=== PATIENT | male | born 1960 | race Caucasian/White ===

== ENCOUNTER 2022-01-28 10:53 | Outpatient (RCR) | payer OTHER, SELFPAY ==
[2022-01-28 11:32] LABS: Hematocrit 27.9 % (40-54); Hemoglobin 8.9 g/dL (13.0-16.5); Mean Corp Hgb Conc 31.9 g/dL (32-36); Mean Corpuscular Hgb 31.2 pg (27.0-32.0); Mean Corpuscular Volume 97.9 fL (80-94); Mean Platelet Vol. 8.7 fl (6.2-12.0); POSITIVE COUNT YES; POSITIVE DIFFERENTIAL YES; POSITIVE MORPHOLOGY YES; Platelet Count 223 K/mm3 (150-450); Red Blood Count 2.85 M/mm3 (4.6-6.2)
[2022-01-28 11:48] LABS: AST(SGOT) 22 U/L (15-37); Alanine Aminotransfer ALT/SGPT 50 U/L (16-61); Albumin, Serum 3.1 g/dL (3.2-5.0); Alkaline Phosphatase 71 U/L (45-117); Anion Gap 5 (5-15); BUN 13 mg/dL (7-18); BUN/Creat Ratio 20.5 RATIO (10-20); Calcium,Total 9.2 mg/dL (8.5-10.1); Chloride 101 mmol/L (98-107); Creatinine, Serum 0.64 mg/dL (0.70-1.30); EST Glomerular Filtration Rate 136 mL/min (>60); Est Glom Filt Rate - Afr Amer 165 mL/min (>60); Globulin 3.2 g/dL (2.2-4.2); Glucose 100 mg/dL (74-106); Potassium 3.4 mmol/L (3.5-5.1); Protein, Total 6.3 g/dL (6.4-8.2); Sodium Level 137 mmol/L (136-145)
[2022-01-28 11:53] LABS: Differential Indicated MANUAL DIFF; White Blood Count 31.6 K/mm3 (4.4-11.0)
[2022-01-28 12:23] LABS: Lymphocyte 10 % (19-41); Neutrophil-Segmented 90 % (47-70); Total Cells Counted 100 (MANUAL DIFF)
[2022-01-28 12:24] LABS: Platelet Estimate ADEQUATE (ADEQ); Red Cell Morphology NORM C+C NORMAL (NORM C&C)
[2022-01-28 12:25] LABS: Absolute Neutrophil Count 28.4 X10^3/uL (2.0-7.7)
[2022-01-28 19:28] LABS: Xtra Tube EP Lab EXTRA TUBE
[2022-01-29 14:04] LABS: Pathologist Review Reviewed
== END 2022-01-31 23:59 ==
LOC: PAVLAB 10:53
PROVIDERS: Referring Provider Nurse Practitioner Adult Health; Visit Provider Nurse Practitioner Adult Health
DX: C83.30 Diffuse large B-cell lymphoma, unspecified site (principal)
CPT/HCPCS: 36415; 80053; 85025

== ENCOUNTER → 2022-02-06 | Outpatient (CLI) | payer OTHER, SELFPAY ==
--- NOTE | 2022-02-06 14:45 | PET_ITS ---
PROCEDURE: WHOLE BODY PET/CT SCAN, SKULL TO FEET REASON FOR EXAM: Non-Hodgkin''s lymphoma involving the stomach staging COMPARISON EXAMINATION: None. TECHNIQUE: Following the intravenous administration of 12.4 mCi of F-18 FDG, multiplanar imaging acquisitions of the head/neck, chest, abdomen/pelvis to the feet, obtained at 1 hour post radiopharmaceutical administration. Interpretation is with co-registeration of similar anatomic distribution of CT. Findings: Normal and physiologic distribution of radioisotope identified in the expected intensity of the hepatic and splenic parenchyma, urinary tract and gastrointestinal structures. There is gross anatomic distribution of the intracranial contents. INDEX LESION SIZE SUV INTERPRETATION: 1. None CT portion of the exam: The lungs are normal. There is no demonstrated pleural abnormality. Normal heart and pericardium. There are calcifications of the coronary arteries. Normal mediastinum. Normal hilar regions. Normal unenhanced pulmonary arteries. There is atherosclerotic calcification of the aortic arch with tortuosity and elongation of the aortic arch and descending thoracic aorta. Carotid atherosclerosis. There is decreased attenuation of the liver consistent with steatosis. Normal gallbladder and extrahepatic biliary system. Normal spleen. Normal pancreas. Normal bilateral adrenal glands. Normal right kidney. Normal left kidney. No gastric wall thickening/mass. Normal small intestine. There are multiple colonic diverticula consistent with diverticulosis. There is non-visualization of the appendix. There is diffuse atherosclerotic calcification of the abdominal aorta, without a demonstrated aneurysm. Normal inferior vena cava. Normal urinary bladder. Unremarkable osseous structures. PET/PET/CT Tumor WB Subs IMPRESSION: 1. NEGATIVE EXAMINATION. No scintigraphic evidence of viable neoplasm. 2. Chronic changes, as detailed above. Electronically Signed: Jerry Vidal MD ([place]) at 14:35 EDT ,
== END | disposition home or self-care (01) ==
DX: C85.99 Non-Hodgkin lymphoma, unspecified, extranodal and solid organ sites (principal)
CPT/HCPCS: 78816; A9552

== ENCOUNTER 2022-02-12 09:25 | Day surgery (SDC) | payer OTHER, SELFPAY ==
[2022-02-12] VITALS (7 sets, daily range): BP systolic 109–146; BP diastolic 76–83; PULSE 71–77; RESP 12–16; TEMP 36.3–36.4; O2SAT 93–99; BMI 31.6
[2022-02-12] MEDS: Lactated Ringers 1,000 ML 15 ML IV (10:30)
--- NOTE | 2022-02-12 10:47 | PCM.HP.BLA ---
History and Physical Date of Admission: 02/12/22 Intake Vital Signs ? 01/31/2213:38 Height 5 ft 11 in Weight: 237 lb 4 oz BMI 33.0 BP 146/81 H Blood Pressure Location Rt brachial Position Sitting Respiration 18 Pulse 92 Pulse Source Monitor Temp 98.7 F Temp Source Temporal Pulse Oximetry (%) 96 Oxygen Delivery Method room air Intake Visit Reasons:?Port placement consult Chief Complaint: Port Placement Consult Electrical Technician Required: No Accompanied by: Is patient in pain?: No Allergies venom-honey bee [bee venom (honey bee)] Allergy (Verified 01/31/22 13:40) Anaphylaxis Medications atorvastatin 10 mg tablet 10 mg PO DAILY 01/25/16 [History Confirmed 01/31/22] epinephrine 0.3 mg/0.3 mL injection, auto-injector 0.3 mg IM PRN PRN Anaphylaxis 01/25/16 [History Confirmed 01/31/22] filgrastim 480 mcg/0.8 mL injection syringe ([employer]) 480 mcg subcut DAILY 01/25/22 [History Confirmed 01/31/22] omeprazole 40 mg capsule,delayed release 40 mg PO BID 01/25/22 [History Confirmed 01/31/22] ondansetron 4 mg oral soluble film 4 mg PO Q8H 01/25/22 [History Confirmed 01/31/22] polyethylene glycol 3350 17 gram/dose oral powder 4 g PO DAILY 01/25/22 [History Confirmed 01/31/22] prochlorperazine maleate 10 mg tablet 10 mg PO BID PRN 01/25/22 [History Confirmed 01/31/22] sennosides 8.6 mg tablet (Natural Senna Laxative) 8.6 mg PO DAILY 01/25/22 [History Confirmed 01/31/22] valacyclovir 500 mg tablet 500 mg PO DAILY 01/25/22 [History Confirmed 01/31/22] multivitamin 1 tab PO DAILY 01/30/22 [History Confirmed 01/31/22] omega 9-jeh-zit-fish oil 60 mg-90 mg-500 mg capsule 1 cap PO DAILY 01/30/22 [History Confirmed 01/31/22] prednisone 10 mg tablet 100 mg PO DAILY 5 days #50 tabs 01/30/22 [Rx Confirmed 01/31/22] PFSH Medical History? Anemia DLBCL (diffuse large B cell lymphoma) Gastric ulcer Social History? household members:? spouse current occupational status:? employed current occupation:? [employer] Smoking Status:? Current every day smoker tobacco type: cigarettes Tobacco: How many years used:? 35 alcohol intake:? former details:? quit 23 years ago substance use type:? does not use HPI HPI HPI: HUMBERTO LAROSE, is a 61 M who presents to the office today for port placement.? The patient has lymphoma and requires port for treatment. ROS General General: No weight change, appetite, fatigue, colon cancer, breast cancer or weakness HEENT HEENT: No difficulty swallowing, eye injury, eye surgery, swollen glands or hoarseness Endo Endocrine: No thyroid disease, diabetes mellitus, thyroid cancer, Hair loss, heat intolerance or cold intolerance Skin Skin: No rash or changing moles Breast Breast: No left breast lump, right breast lump, nipple discharge, breast pain, abnormal mammogram, abnormal US or breast enlargement Musc Musculoskeletal: No back problems, arthritis, rheumatoid arthritis, gout or joint pain Cardio Cardiovascular: No murmur, pacemaker, heart disease, atrial fibrillation, high blood pressure, heart attack, heart stent, palpitations, shortness of breat with exertion or chest pain Psych Psychiatric: No depression, anxiety or hearing voices Resp Respiratory: No shortness of breath, No sleep apnea, No cough, No COPD, No asthma, No emphysema and No wheezing Gastro Gastrointestinal: No abdominal pain, No nausea or vomiting, No diarrhea, No constipation, No blood in stool, No acid reflux, No hemorrhoids, No ulcers, No gallbladder problem and No black,tarry stools Nagi Hematologic: No blood thinners, No blood disorders, No bleeding, No anemia and No blood clots Neuro Neurologic: No system reviewed and no additional complaints, except as documented, No as per HPI, No abnormal gait, No abnormal hearing, No abnormal movements, No abnormal speech, No behavioral changes, No burning sensations, No confusion, No convulsions, No disequilibrium, No dizziness, No localized weakness, No frequent falls, No headache(s), No lack of coordination, No loss of vision, No memory loss, No numbness, No other visual disturbances, No radicular pain, No restless legs, No sensory deficit, No syncope, No tingling, No tremor(s), No weakness and No other Exam Const General: cooperative Orientation: alert and oriented x3 HENAK Head: normal to inspection Neck Neck: normal visual inspection and full ROM Chest Chest palpation & inspection: normal inspection of the chest Resp Effort & Inspection: normal respiratory effort Auscultation: clear to auscultation bilaterally Cardio Rate: regular rate Rhythm: regular rhythm GI Inspection: non-distended Palpation: soft and nontender Skin General: no rashes or lesions noted Neuro General: patient alert and patient oriented x3 Extrem General: full ROM Psych Appearance: grossly normal Mental Status: mental status grossly normal Assessment and Plan Assessment and Plan (1) Encounter for adjustment and management of vascular access device: ?Status:?Acute ?Plan: The patient requires port for vascular access for treatment of lymphoma.? I discussed port placement with him in detail.? I discussed the risks including not limited to bleeding, infection, pneumothorax, line infection or DVT.? I also discussed the procedure in detail with the patient I will leave the port accessed as he is getting treatment 2 days later. Ja Ayon MD Pager: [facility] [address] [place] [address], [address] [place] [address] Office: I have re-examined the patient. There are no clinical changes since date of exam.
[2022-02-12] MEDS: Cefazolin 2 GM in 0.9% Normal Saline 100 ML IV (11:03)
[2022-02-12] MEDS: Bupivacaine 0.25% 30 ML Vial (11:26)
--- NOTE | 2022-02-12 11:54 | RAD_ITS ---
STUDY: X-RAY CHEST REASON FOR EXAM: Male, 61 years old. Line placement -- in pacu TECHNIQUE: Single AP portable view of the chest. COMPARISON: None. FINDINGS: A right-sided portacatheter is seen with the tip in the midportion of the superior vena cava. The lungs are clear and expanded. There is no demonstrated pleural abnormality. Normal size heart. Normal mediastinum and pricilla. Normal visualized pulmonary arteries. Normal visualized aortic arch and descending thoracic aorta. There are diffuse degenerative changes of the visualized thoracic spine. Normal visualized ribs, clavicles, and shoulders. There is no demonstrated abnormality of the visualized soft tissue structures of the upper abdomen. RAD/CXR for Line Placement IMPRESSION: The right-sided Port-A-Cath has been placed. The tip is in the midportion of the superior vena cava. Electronically Signed: Raj Moreno MD at 12:28 EDT ,
--- NOTE | 2022-02-12 11:55 | OP.PCM_ITS ---
Report of Operation Date of Procedure: 02/12/22 Pre-Operative Diagnosis: Need for vascular access for chemotherapy Post-Operative Diagnosis: Same Surgery/Procedure Performed:: Ultrasound and fluoroscopy guided right chest port placement utilizing right IJ Description of Procedure: After obtaining informed consent patient was brought back to the operating room MAC anesthesia was induced and the right chest and neck were prepped in normal s terile fashion. Ultrasound was used to evaluate both IJs and the right IJ was selected. Next, using a needle, the right IJ was accessed and a guidewire was passed on into the superior vena cava under fluoroscopy guidance. A small incision was made over the puncture site and the dilator introducer was placed over the guidewire. Next this was capped and the pocket was made for the port. 1% lidocaine with epinephrine was injected in the proposed port site. An incision was made with scalpel. Electrocautery was used to make a pocket under the skin and subcutaneous tissue. Hemostasis was obtained. Next, the catheter was tunneled up to the neck incision site and placed through the introducer. The peel-away introducer was removed and the position of the catheter was confirmed on fluoroscopy. Next, the catheter was trimmed and attached to the port with the locking device. Interrupted 2-0 Vicryl sutures were used to anchor the port to the chest wall and then the port was placed inside the pocket. The pocket was then flushed with saline and the port irrigated with saline. There was good blood return and the port flushed easily. Next, heparin was injected into the port. The skin was closed with subcutaneous interrupted 3-0 Vicryl sutures. A single 3-0 Vicryl sutures placed under the skin at the neck incision site. Steri-Strips were placed as well as op sites. Patient maxime erated procedure well, was taken to PACU in stable condition. Chest x-ray will be obtained. Grafts/Implants Used: 8 Vietnamese PowerPort Admit VTE Documentation VTE Mechan Device Prophylaxis: SCD's
--- NOTE | 2022-02-12 11:58 | DCINST_ITS ---
Discharge Instructions Procedure Port-A-Cath Diet Discharge Diet: Light diet - advance as tolerated (Pain medication may cause nausea. You should typically eat light foods as you take your pain medication.) Activity Discharge Activity: Return to Normal Activity and May Shower (with your bandage in place in 1-2 days after surgery. ) Dressing / Incision Call your doctor if your incision/area has: Continuous Slow Oozing, Sudden Increased Bleeding, Increased Pain/ Swelling, Increased Redness and Foul Smelling Discharge Call your doctor if you observe: Fever of 101 or Higher Remove Dressing in: 2 days Cleanse incision/area with: Soap & Water Follow Up Care Please Follow Up With: Ja Ayon MD When: as needed [phone] Test Results: Test results from this visit will be discussed in further detail at your follow- up appointment, if applicable. Discharge Plan Admission Attending Provider: Ja Ayon Primary Care Provider: SHERICE RADFORD Consulting Providers: Marshall Gibbs Discharge Orders/Prescriptions Prescriptions: No Action ondansetron 4 mg film 4 mg PO Q8H prochlorperazine maleate 10 mg tablet 10 mg PO Q6H valacyclovir 500 mg tablet 500 mg PO DAILY multivitamin Tablet 1 tab PO DAILY epinephrine 0.3 MG syringe 0.3 mg IM PRN PRN (Reason: Anaphylaxis) esomeprazole magnesium 40 mg Capsule,Delayed Release(Dr/Ec) 40 mg PO BID rosuvastatin 10 mg tablet 10 mg PO DAILY prednisone 10 mg tablet 50 mg PO BID Rx Instructions: Take 100 mg in a.m. after breakfast For 5 days starting on day 1 of chemotherapy and repeat cycle every 3 weeks for total 5 cycles Referrals / Follow Up: SHERICE RADFORD [Other] Disposition Disposition (needs filled in before D/C Order can be placed): Home, Self Care
== END 2022-02-12 12:57 | disposition home or self-care (01) ==
LOC: SDC 09:30 → AC 09:32
PROVIDERS: Referring Provider Surgery; Visit Provider Surgery
PROC: (CPT 36561; principal; 2022-02-12 10:45)
DX: Z45.2 Encounter for adjustment and management of vascular access device (principal); C83.30 Diffuse large B-cell lymphoma, unspecified site; E78.00 Pure hypercholesterolemia, unspecified; M19.90 Unspecified osteoarthritis, unspecified site; F17.210 Nicotine dependence, cigarettes, uncomplicated; Z79.52 Long term (current) use of systemic steroids; Z79.899 Other long term (current) drug therapy
CPT/HCPCS: 36561; 71045; 77001; J7120; C1788; J2405

== ENCOUNTER 2022-07-05 08:48 | Day surgery (SDC) | payer OTHER, SELFPAY ==
--- NOTE | 2022-07-05 | IMM_PTH ---
PATIENT: HUMBERTO LAROSE LOC: EN U#:[id number] AGE/SX: 62/M ROOM: RE07/05/[address]: Dr. Ja Ayon MD : 1960 BED: DIS: 07/05/2022 SPEC #: [id number] RECD: 07/08/22 13:26 STATUS: ANA ROSA [place] #: [id number] JESUS: 07/05/22 00:[address]: Ja Ayon DEPT: IMMUNOHISTOCHEMISTRY RECD BY: Amira Galan ENTERED: 07/08/22 13:27 SP TYPE: IMMUNO OTHR DR: SHERICE RADFORD MD Tissues: Stomach, NOS Procedures: H Pylori (initial) PHYSICIAN & INSTITUTION [place] [id number] SPECIMEN INFORMATION: Tissue Source: Random body of stomach biopsies Clinical Info: Surveillance EGD, status post lymphoma Specimen Number: [id number] CPT code: 23453 METHODOLOGY: Deparaffinized sections of prefer/formalin-fixed tissue or PAP/DQ stained slides are incubated with monoclonal/polyclonal antibodies/oligonucleotide probes. Localization is made via biotin free immunoperoxidase method. Appropriate controls are performed and reacted as expected. Results on target cell population are indicated in the following table: RESULTS: ANTIBODY / CLONE RESULT H Pylori (polyclonal) negative These tests were developed and their performance characteristics determined by [facility]. They may not have been cleared or approved by the U.S. Food and Drug Administration. The FDA has determined that such clearance or approval is not necessary. The above immunohistochemical/dualISH markers are ordered and reviewed by the Pathologist. INTERPRETATION: Body of stomach, random biopsy: Negative for Helicobacter pylori organisms. TONE:case 07/10/2022
[2022-07-05 09:17] VITALS: BP 136/79; PULSE 78; RESP 18; TEMP 36.4; O2SAT 97; BMI 32.8
[2022-07-05] MEDS: Lactated Ringers 1,000 ML 15 ML IV (09:37)
--- NOTE | 2022-07-05 09:52 | H&P.OPEN ---
HPI - General HPI Narrative HUMBERTO LAROSE, is a 62 M who presents for surveillance EGD. The patient recently finished treatment for lymphoma the stomach. The patient had EGD over the summer which showed an ulcerated mass in the stomach and after chemotherapy the patient had a PET scan which showed no PET avid lesions. He is here for surveillance EGD to confirm this. [facility], [facility] Medical History Anemia Arthritis Cancer DLBCL (diffuse large B cell lymphoma) Encounter for chemotherapy management Gastric ulcer High cholesterol History of blood transfusion History of echocardiogram History of stress test Hoarseness Loss of consciousness Lymphoma Mucositis (ulcerative) due to antineoplastic therapy Smoker Wears dentures Wears glasses Home Medications epinephrine 0.3 mg/0.3 mL injection, auto-injector 0.3 mg IM PRN PRN Anaphylaxis 01/25/16 [History Last Taken Unknown] ondansetron 4 mg oral soluble film 4 mg PO Q8H 01/25/22 [History Last Taken Unknown] prochlorperazine maleate 10 mg tablet 10 mg PO Q6H 01/25/22 [History Last Taken Unknown] valacyclovir 500 mg tablet 500 mg PO DAILY 01/25/22 [History Last Taken Unknown] multivitamin 1 tab PO DAILY 01/30/22 [History Last Taken Unknown] esomeprazole magnesium 40 mg capsule,delayed release 40 mg PO BID 02/07/22 [History Last Taken 07/05/22 06:00] rosuvastatin 10 mg tablet 10 mg PO DAILY 02/07/22 [History Last Taken Unknown] lidocaine-prilocaine 2.5 %-2.5 % topical cream 1 applic topical ONCE PRN port access 30 days #30 grams 02/26/22 [Rx Last Taken Unknown] prednisone 50 mg tablet 100 mg PO .COMPLEX #10 tabs 04/09/22 [Rx Last Taken Unknown] valacyclovir 500 mg tablet 500 mg PO DAILY 30 days #30 tabs 05/23/22 [Rx Last Taken Unknown] bupropion HCl 100 mg tablet,12 hr sustained-release (Wellbutrin SR) 100 mg PO QHS 07/04/22 [History Last Taken Unknown] Allergy/AdvReac Type Severity Reaction Status Date / Time venom-honey bee Allergy Anaphylaxis Verified 07/05/22 09:10 [bee venom (honey bee)] Social History household members: spouse current occupational status: employed current occupation: [employer] Manager Smoking Status: Current every day smoker tobacco type: cigarettes Tobacco: How many years used: 35 alcohol intake: former details: quit 23 years ago substance use type: does not use Past Medical/Surgical History Planned Operation Planned Operative Procedure/s: EGD Previous Hospitalizations/Surgeries HX Hospitalizations: No HX of Surgeries: port placed Any Problems With Anesthesia: No You/Your Family Experience Fever (Hyperthermia) With Anes: No Cholinesterase deficiency: No Cardiovascular Hx Heart Attack: No Hx Hypertension: No Respiratory Hx Chronic Obstructive Pulmonary Disease (COPD): No Hx Asthma: No Hx Emphysema: No Hx Sleep Apnea: No Hx Respiratory Tract Infection/Cold (presently): No Do You Snore Loudly (louder than talking or can be heard): Yes Do You Often Feel Tired/ Fatigued/ Sleepy Dring Daytime?: No Has Anyone Observed You Stop Breathing During Sleep?: No Result (for STOP score): Negative Smoking Status: Current every day smoker Gastrointestinal Special diet followed at home: No Neurological Hx Seizures: No Does patient have nerve stimulator: No Genitourinary Hx Renal Disease: No Endocrine Hx Diabetes: No Miscellaneous Hx Cancer: Yes (lymphoma) Recent Exposure to Contagious Disease: No Allergies venom-honey bee [bee venom (honey bee)] Allergy (Verified 07/05/22 09:10) Anaphylaxis Discharge Is Pt Admitted From a Snf, or a Senior Care: No After D/C, Where Do you Plan to Go: Return Home From the [facility] History Number of Risk Factors: 1 Vital Signs Vital Signs Vital Signs: 07/05/22 09:13 07/05/22 09:17 Temperature 97.5 F L Temperature Source Temporal Pulse Rate 78 Respiratory Rate 18 Respiratory Pattern Normal Blood Pressure 136/79 H Blood Pressure Mean 98 Blood Pressure Source Monitor Blood Pressure Position Semi-Fowlers Blood Pressure Location Right Arm Pulse Ox 97 Oxygen Delivery Method Room Air Weight Weight: 235 lb Body Mass Index (BMI) 32.8 Physical Exam Const alert and oriented x3 HEENT normocephalic Eyes PERRL Resp normal respiratory effort and normal air movement Cardio regular rate and regular rhythm GI soft to palpation, non-tender and non-distended Extremity normal to inspection Assessment & Plan Assessment/Plan (1) DLBCL (diffuse large B cell lymphoma): QUALIFIERS: Lymphoma site: unspecified region Qualified Code(s): C83.30 - Diffuse large B-cell lymphoma, unspecified site PLAN: Patient is here for EGD to ensure that his lymphoma has resolved in the stomach. I discussed this with him in detail. I explained endoscopy in detail to the patient. I explained the risks including but not limited to stroke or heart attack with anesthesia, perforation of the GI tract, bleeding, infection. I explained that any of these could necessitate further emergency surgery. The patient understands and all questions were answered sufficiently. The patient wishes to proceed with procedure. The patient would also like his port removed I explained to him that this was not possible in the endoscopy suite and that he should make an appointment in the office and I would be able to remove in the office. Ja Ayon MD Pager: [facility] [address] [place] [address] [address] [place] [address] Office: Surgery Risks - Colonoscopy Risks Include but are not Limited To: Risks include but are not limited to: Bleeding, perforation requiring further surgery, inability to complete colonoscopy requiring barium enema.
--- NOTE | 2022-07-05 10:00 | EGD_PTH ---
PATIENT: HUMBERTO LAROSE LOC: EN U#:[id number] AGE/SX: 62/M ROOM: RE07/05/[address]: Dr. Ja Ayon MD : 1960 BED: DIS: 07/05/2022 SPEC #: [id number] RECD: 07/05/22 11:03 STATUS: ANA ROSA [place] #: [id number] JESUS: 07/05/22 10:[address]: Ja Ayon DEPT: SURGICAL PATHOLOGY RECD BY: Keli Wright ENTERED: 07/05/22 12:50 SP TYPE: EGD BIOPSY OTHR DR: SHERICE RADFORD MD Tissues: Stomach, NOS Procedures: Surgery Specimen Level IV HEADER OPERATION: EGD ([facility] [place]) PRE-OP DIAGNOSIS: Surveillance EGD, status post lymphoma TISSUE SUBMITTED: Random body of stomach biopsies MICROSCOPIC DIAGNOSIS Body of the stomach, random biopsy: Mild gastritis. See microscopic description and comment. SJ:case 07/08/2022 COMMENT Significant increased number of lymphocytes or lymphoid aggregates suggestive of lymphoma are not seen. The results of immunohistochemistry for Helicobacter pylori will be reported separately ([id number]). Correlation with clinical, endoscopic findings and appropriate follow up are necessary. MICROSCOPIC DESCRIPTION Slides are reviewed. The specimen shows fragments of gastric mucosa with chronic inflammatory cell infiltrates in the lamina propria consisting of lymphocytes and plasma cells, consistent with mild chronic gastritis. GROSS DESCRIPTION Received in fixative is one container labeled with the patient's name and designated body of stomach. The specimen consists of multiple irregular fragments of light cifuentes soft tissue that in aggregate measure 1 x 0.8 x 0.1 cm. The specimen is totally submitted in one cassette. / AM:case 07/05/2022 TC:3 CPT: 42718
--- NOTE | 2022-07-05 10:16 | OP.EGD_ITS ---
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 Refer to note in patient chart for documentation of history and physical. Complications: No immediate complications. Estimated blood loss: Minimal. Procedure: Pre-Anesthesia Assessment: - Prior to the procedure, a History and Physical was performed, and patient medications and allergies were reviewed. The patient's tolerance of previous anesthesia was also reviewed. The risks and benefits of the procedure and the sedation options and risks were discussed with the patient. All questions were answered, and informed consent was obtained. Prior Anticoagulants: The patient has taken no previous anticoagulant or antiplatelet agents. After reviewing the risks and benefits, the patient was deemed in satisfactory condition to undergo the procedure. After obtaining informed consent, the endoscope was passed under direct vision. Throughout the procedure, the patient's blood pressure, pulse, and oxygen saturations were monitored continuously. The gastroscope was introduced through the mouth, and advanced to the third part of duodenum. The upper GI endoscopy was accomplished without difficulty. The patient tolerated the procedure well. Scope In: 10:10:14 AM Scope Out: 10:13:22 AM Total Procedure Duration Time 0 hours 3 minutes 8 seconds Findings: The esophagus was normal. The stomach was normal. The examined duodenum was normal. Biopsies were taken with a cold forceps in the gastric body for histology. Impression: - Normal esophagus. - Normal stomach. - Normal examined duodenum. - Biopsies were taken with a cold forceps for histology in the gastric body. Recommendation: - Discharge patient to home. - Resume previous diet. - Continue present medications. - Await pathology results. Procedure Code(s): --- Professional --- 43711, Esophagogastroduodenoscopy, flexible, transoral; with biopsy, single or multiple Diagnosis Code(s): --- Professional --- C16.9, Malignant neoplasm of stomach, unspecified CPT copyright 2017 [employer]. All rights reserved. The codes documented in this report are preliminary and upon drafter refrigeration review may be revised to meet current compliance requirements. Ja Ayon MD 07/05/2022 10:16:31 AM This report has been signed electronically. Number of Addenda: 0 Note Initiated On: 07/05/2022 10:01 AM
--- NOTE | 2022-07-05 10:17 | OP.CCLET_ITS ---
07/05/2022 No Primary Care Physician Re : [facility] This procedure was performed on Tuesday, July 05, 2022. My impressions and recommendations are as follows: Impressions : - Normal esophagus. - Normal stomach. - Normal examined duodenum. - Biopsies were taken with a cold forceps for histology in the gastric body. Recommendations : - Discharge patient to home. - Resume previous diet. - Continue present medications. - Await pathology results. My findings are described in the full procedure note, which is enclosed. If I can be of further assistance, please feel free to contact me at Doctor phone number(s): , Work: . Sincerely, Ja Ayon MD 07/05/2022 10:16:31 AM This report has been signed electronically.
[2022-07-05 10:20] VITALS: BP 104/75; BP 136/79; PULSE 77; RESP 18; TEMP 36.5; O2SAT 97
[2022-07-05 10:25] VITALS: BP 119/79; BP 136/79; PULSE 80; RESP 18; O2SAT 96
[2022-07-05 10:30] VITALS: BP 114/80; BP 136/79; PULSE 77; RESP 18; O2SAT 96
[2022-07-05 10:36] VITALS: BP 116/82; BP 136/79; PULSE 76; RESP 18; TEMP 37.1; O2SAT 96
[2022-07-05 10:50] VITALS: BP 136/79
== END 2022-07-05 11:06 | disposition home or self-care (01) ==
LOC: EN 08:49 → AC 08:51
PROVIDERS: PCP Family Medicine; Referring Provider Surgery; Visit Provider Surgery
PROC: 0DJ08ZZ Inspection of Upper Intestinal Tract, Via Natural or Artificial Opening Endoscopic (ICD-10-PCS; CPT 43235; principal; 2022-07-05 09:55)
DX: K29.70 Gastritis, unspecified, without bleeding (principal); E78.00 Pure hypercholesterolemia, unspecified; F17.210 Nicotine dependence, cigarettes, uncomplicated; Z92.21 Personal history of antineoplastic chemotherapy
CPT/HCPCS: 43239; 88305; 88342; J7120; J2405

== ENCOUNTER → 2022-10-08 | Outpatient (CLI) | payer OTHER, SELFPAY ==
--- NOTE | 2022-10-08 13:01 | ECHOD_ITS ---
Reason For Study: DYSPNEA Procedure This was a 2D Doppler, Color Flow transthoracic echocardiogram. Myocardial strain analysis was performed in this exam to aid in the assessment of cardiac function. Exam performed in department. Left Ventricle Normal LV size. Left ventricular systolic function is lower limits of normal. The estimated ejection fraction is 50 %. Stage 1 diastolic dysfunction. No regional wall motion abnormalities noted. Right Ventricle Normal RV size. Normal systolic function. Atria The left atrium is moderately enlarged. Normal right atrium. Mitral Valve There is moderate mitral annular calcification. Tricuspid Valve Normal tricuspid valve. Aortic Valve Mild focal aortic valve calcification. Mild restriction of the aortic valve. Peak aortic valve gradient 17 mmHg. Mean aortic valve gradient 10 mmHg. Pulmonic Valve Normal pulmonic valve. Great Vessels Normal aortic root. The pulmonary artery is normal size. Normal inferior vena cava. Pericardium/Pleural No pericardial effusion. MMode/2D Measurements & Calculations LVIDd: 5.7 cm IVSd: 0.92 cm LVOT diam: 2.1 cm LVIDs: 3.8 cm LVPWd: 1.1 cm LVOT area: 3.4 cm2 RVDd: 3.7 cm FS: 33.6 % Ao root diam: 3.9 cm LAV(MOD-bp): 89.0 ml LA A4 area: 26.6 cm2 LAV(MOD-bp) Indexed: 38.9 ml/m2 LAV(MOD-sp2): 84.5 ml LAV(MOD-sp4): 91.6 ml LA dimension(2D): 4.2 cm RA A4 area: 13.1 cm2 Time Measurements MV dec time: 0.17 sec Doppler Measurements & Calculations MV E max xander: 82.9 cm/sec Lat Peak E' Xander: 8.5 cm/sec Med Peak E' Xander: 8.5 cm/sec MV A max xander: 117.6 cm/sec E/E' lat: 9.8 E/E' med: 9.8 MV E/A: 0.70 Ao V2 max: 210.9 cm/sec LV V1 max: 104.6 cm/sec SV(LVOT): 73.2 ml Ao max P.8 mmHg LV V1 max P.4 mmHg Ao V2 mean: 149.9 cm/sec LV V1 mean P.6 mmHg Ao mean P.1 mmHg LV V1 mean: 77.7 cm/sec Ao V2 VTI: 44.6 cm LV V1 VTI: 21.2 cm AV (velocity ratio): 0.48 VALERIE(I,D): 1.6 cm2 VALERIE(V,D): 1.7 cm2 PA V2 max: 103.2 cm/sec ECHO/Echo Complete Interpretation Summary Normal LV size. Left ventricular systolic function is lower limits of normal. The estimated ejection fraction is 50 %. Stage 1 diastolic dysfunction. Mild restriction of the aortic valve. The global longitudinal strain is borderline abnormal. Ordering Physician: Cynthia Andrade Referring Physician: Toshia Gary Performed By: Antonia Escobar RDCS, RVT
== END | disposition home or self-care (01) ==
LOC: CVS 13:00
PROVIDERS: PCP Family Medicine; Visit Provider Nurse Practitioner Family
DX: R06.02 Shortness of breath (principal); R06.00 Dyspnea, unspecified
CPT/HCPCS: 93306

== ENCOUNTER → 2022-10-18 | Outpatient (CLI) | payer OTHER, SELFPAY ==
[2022-10-18 13:39] LABS: BNP,B-Type NATRIURETIC PEPTIDE 7.4 pg/mL (0-100)
[2022-10-18 13:43] LABS: Cholesterol 154 mg/dL (200); High Density Lipoprotein 54 mg/dL; Triglycerides 79 mg/dL; Very Low Density Lipoprotein 16 mg/dL (5-40)
== END | disposition home or self-care (01) ==
LOC: PAVLAB 12:16
PROVIDERS: PCP Family Medicine; Referring Provider Internal Medicine Cardiovascular Disease; Visit Provider Internal Medicine Cardiovascular Disease
DX: R06.09 Other forms of dyspnea (principal)
CPT/HCPCS: 36415; 80061; 83880

== ENCOUNTER → 2022-12-25 | Outpatient (CLI) | payer OTHER, SELFPAY ==
--- NOTE | 2022-12-25 12:53 | CT_ITS ---
EXAM: CT CHEST, ABDOMEN AND PELVIS WITH INTRAVENOUS CONTRAST CLINICAL INDICATION: diffuse large b cell lymphoma surveillance TECHNIQUE: Helically acquired images were obtained of the chest, abdomen and pelvis with intravenous contrast. This CT exam was performed using one or more of the following dose reduction techniques: automated exposure control, adjustment of the mA and/or kV according to patient size, and/or use of iterative reconstruction technique. CONTRAST: Oral and amp; IV Readi-CAT and amp; 100mL Isovue-370 RADIATION DOSE: CTDIvol = 35.74 mGy, DLP = 2352.85 mGy-cm. COMPARISON: PET/CT reported to be negative June 26, 2022. FINDINGS: CHEST: SUPRAHYOID NECK: Oral contrast reached most distal small bowel loops, it did not reached the ileocecal junction. LUNGS AND PLEURAL SPACES: 6 mildly inhomogeneous lung density, minimal groundglass opacities. No confluent airspace disease. No mass. No pleural effusion or thickening. HEART: Moderate left anterior descending coronary artery calcification. Heart size is normal. No pericardial effusion. MEDIASTINUM: Mild mediastinal lipomatosis, no significant mediastinal adenopathy. Esophagus is unremarkable. No hiatal hernia. THYROID: Unremarkable. No thyroid lesions. ABDOMEN: LIVER: Mild low-attenuation fatty-appearing liver, the right lobe is 17.4 cm. GALLBLADDER AND BILE DUCTS: Unremarkable. No calcified gallstones. No gallbladder distention or wall edema. No intra- or extrahepatic biliary ductal dilation. PANCREAS: Unremarkable. No focal cystic or solid mass. SPLEEN: Unremarkable. Normal size without focal cystic or solid mass. ADRENALS: Unremarkable. No nodules. KIDNEYS AND URETERS: Unremarkable. Normal renal size and position. No hydronephrosis. STOMACH AND BOWEL: There is mild-moderate diverticulosis of descending and sigmoid colon, no evidence of acute diverticulitis. Mild-moderate stool in the proximal half of the colon. PELVIS: APPENDIX: Normal appendix is seen on axial images. BLADDER: Moderately distended urinary bladder with borderline 4.5 mm wall, nonspecific but correlate with any evidence of UTI. REPRODUCTIVE: Unremarkable as visualized. No mass. CHEST, ABDOMEN and PELVIS: INTRAPERITONEAL SPACE: Unremarkable. No ascites or other fluid collection. No free air. BONES/JOINTS: Moderate multilevel vacuum disc and disc space narrowing and spondylosis in the lumbar spine, mild spinal canal narrowing. Straightening of the usual lordotic curvature. No destructive bone lesions. No suspicious lytic or blastic abnormality. SOFT TISSUES: There are mild bilateral fat-containing inguinal hernias. VASCULATURE: Exam is adequate to exclude significant PE. Moderate calcifications of the aortoiliac vessels. No aneurysm or dissection. LYMPH NODES: Slight fat in the proximal inguinal rings. No inguinal adenopathy. No retroperitoneal adenopathy. CT/CT Chest, Abd, Pel w/Contrast IMPRESSION: 1. No acute abnormality. No evidence of suspicious adenopathy or mass. 2. Mild fatty liver. Diverticulosis. Degenerative spine changes. Coronary artery calcifications. Atherosclerotic changes. Electronically Signed: Zandra Spicer MD at 5:25 EDT ,
[2022-12-25 13:20] LABS: CREATININE FINGERSTICK < 0.9 mg/dL (0.70-1.30); EGFR FINGERSTICK > 60.0000 mL/min (>60)
== END | disposition home or self-care (01) ==
LOC: CT 12:51
PROVIDERS: PCP Family Medicine; Referring Provider Nurse Practitioner Family; Visit Provider Nurse Practitioner Family
DX: C83.30 Diffuse large B-cell lymphoma, unspecified site (principal)
CPT/HCPCS: 71260; 74177; Q9967

== ENCOUNTER → 2023-06-18 | Outpatient (CLI) | payer OTHER, SELFPAY ==
--- NOTE | 2023-06-18 07:53 | CT_ITS ---
STUDY: CT CHEST, ABDOMEN T PELVIS WITH CONTRAST REASON FOR EXAM: Male, 63 years old. DLBCL surveillance. Lymphoma. Six-month follow-up examination. RADIATION DOSAGE (If Supplied By Facility): CTDIvol = ( 21.63 ) mGy, DLP = ( 2076.34 ) mGycm TECHNIQUE: Transaxial imaging was performed following intravenous administration of Oral and amp;amp; IV Gastrografin and amp;amp; 100mL Isovue-300. Multiplanar coronal and sagittal images were reformatted. Individualized dose optimization techniques were used for this CT. COMPARISON: Comparison is made with prior study dated December 25, 2022. FINDINGS: CHEST Mild increased markings at the right lung base suggestive of a atelectasis. There is no demonstrated pleural abnormality. There are calcifications of the coronary arteries. Normal mediastinum. Normal hilar regions. There is evidence of a pulmonary embolus involving the proximal aspect of the right interlobar pulmonary artery with extension into multiple branches of the right lower lung pulmonary artery. There is atherosclerotic calcification of the aortic arch. There are multi-level degenerative changes of the thoracic spine. ABDOMEN There is decreased attenuation of the liver consistent with steatosis. Normal gallbladder and extrahepatic biliary system. Normal spleen. Normal pancreas. Normal bilateral adrenal glands. Normal right kidney. Normal left kidney. Normal visualized stomach. Normal small intestine. There are scattered colonic diverticula consistent with diverticulosis. The appendix is visualized and appears normal. There is diffuse atherosclerotic calcification of the abdominal aorta and its major visceral branches, without a demonstrated aneurysm. Normal inferior vena cava. Normal retroperitoneum. Normal abdominal wall. There are diffuse degenerative changes of the visualized lumbar spine. PELVIS Normal urinary bladder. There is no pelvic fluid. There is no pelvic lymphadenopathy or mass lesion. Normal visualized pelvic arteries. CT/CT Chest, Abd, Pel w/Contrast IMPRESSION: Acute pulmonary embolism involving the right interlobar pulmonary artery as well as right lower lobe pulmonary arterial branches. Electronically Signed: Raj Moreno MD at 11:24 EST ,
[2023-06-18 10:37] LABS: CREATININE FINGERSTICK < 0.9 mg/dL (0.70-1.30); EGFR FINGERSTICK > 60.0000 mL/min (>60)
== END | disposition home or self-care (01) ==
LOC: CT 07:51
PROVIDERS: PCP Family Medicine; Referring Provider Nurse Practitioner Family; Visit Provider Nurse Practitioner Family
DX: C83.30 Diffuse large B-cell lymphoma, unspecified site (principal); K25.9 Gastric ulcer, unspecified as acute or chronic, without hemorrhage or perforation
CPT/HCPCS: 71260; 74177; Q9967

== ENCOUNTER → 2023-12-18 | Outpatient (CLI) | payer OTHER, SELFPAY ==
--- NOTE | 2023-12-18 12:37 | CT_ITS ---
STUDY: CT CHEST, ABDOMEN T PELVIS WITH CONTRAST REASON FOR EXAM: Male, 63 years old. HX OF PULMONARY EMBOLISM. Patient has a history of lymphoma. Follow-up examination. RADIATION DOSAGE (If Supplied By Facility): CTDIvol = ( 24.71 ) mGy, DLP = ( 2125.08 ) mGycm TECHNIQUE: Transaxial imaging was performed following intravenous administration of Oral and amp; IV Readi-CAT and amp; 100mL Isovue-300. Multiplanar coronal and sagittal images were reformatted. Individualized dose optimization techniques were used for this CT. COMPARISON: Comparison is made with prior study June 18, 2023. FINDINGS: CHEST Mild degree of increased markings in the posterior aspect of the left upper lobe abutting the left major fissure. This is unchanged. Minimal atelectasis at the lung bases. Coronary artery calcification. Normal heart and pericardium. Normal mediastinum. Normal hilar regions. Normal unenhanced pulmonary arteries. There is atherosclerotic calcification of the aortic arch. There are multi-level degenerative changes of the thoracic spine. ABDOMEN There is decreased attenuation of the liver consistent with steatosis. The gallbladder is contracted. Normal spleen. Normal pancreas. Normal bilateral adrenal glands. Normal right kidney. Normal left kidney. Normal visualized stomach. Normal small intestine. Normal colon. The appendix is visualized and appears normal. There is diffuse atherosclerotic calcification of the abdominal aorta and its major visceral branches, without a demonstrated aneurysm. Normal inferior vena cava. Normal retroperitoneum. Normal abdominal wall. There are diffuse degenerative changes of the visualized lumbar spine. Straightening of the normal lumbar lordosis. PELVIS Mild degree of diffuse bladder wall thickening. There is no pelvic fluid. There is no pelvic lymphadenopathy or mass lesion. Normal visualized pelvic arteries. CT/CT Chest, Abd, Pel w/Contrast IMPRESSION: Diffuse bladder wall thickening. Essentially stable examination. Electronically Signed: Raj Moreno MD at 14:16 EDT ,
[2023-12-18 13:07] LABS: CREATININE FINGERSTICK < 1.0 mg/dL (0.70-1.30); EGFR FINGERSTICK > 60.0000 mL/min (>60)
== END | disposition home or self-care (01) ==
LOC: CT 12:36
PROVIDERS: PCP Family Medicine; Referring Provider Internal Medicine Hematology & Oncology; Visit Provider Internal Medicine Hematology & Oncology
DX: Z01.812 Encounter for preprocedural laboratory examination (principal); I26.99 Other pulmonary embolism without acute cor pulmonale; K25.9 Gastric ulcer, unspecified as acute or chronic, without hemorrhage or perforation
CPT/HCPCS: 71260; 74177; Q9967

== ENCOUNTER → 2024-06-09 | Outpatient (CLI) | payer OTHER, SELFPAY ==
--- NOTE | 2024-06-09 12:46 | CT_ITS ---
STUDY: CT CHEST, ABDOMEN T PELVIS WITH CONTRAST REASON FOR EXAM: Male, 64 years old. F/U GASTRIC LYMPHOMA RADIATION DOSAGE (If Supplied By Facility): CTDIvol = ( 19.91 ) mGy, DLP = ( 2253.44 ) mGycm TECHNIQUE: Transaxial imaging was performed following intravenous administration of IV 100mL Isovue-300. The protocol utilizes one or more of the following dose reduction techniques: automated exposure control, adjustment of mA and/or kV according to patient size,and/or use of iterative reconstruction technique. COMPARISON: Prior study dated: 12/18/2023 FINDINGS: CHEST Mild stranding/scarring in the left upper lobe. No focal infiltrate. No evidence of pulmonary nodule. There is no demonstrated pleural abnormality. Normal heart and pericardium. Coronary calcifications. Normal mediastinum. Normal hilar regions. Essentially unremarkable Central pulmonary arteries. Atherosclerotic calcifications of the thoracic aorta without evidence of aneurysm. There are degenerative changes of the thoracic spine. ABDOMEN There is decreased attenuation of the liver consistent with steatosis. Normal gallbladder and extrahepatic biliary system. Normal spleen. Normal pancreas. Normal bilateral adrenal glands. Normal right kidney. Normal left kidney. Normal visualized stomach. Normal small intestine. Surgical anastomosis sutures in the rectosigmoid junction with focal area of proximal narrowing/stenosis measuring about 3 cm in length. Diverticulosis of the sigmoid colon without evidence of acute diverticulitis. The appendix appears unremarkable. There is diffuse atherosclerotic calcification of the abdominal aorta with elongation and tortuosity, but without a demonstrated aneurysm. Normal inferior vena cava. Normal retroperitoneum. Normal abdominal wall. Degenerative changes of the spine. No suspicious lesions. PELVIS Persistent circumferential bladder wall unchanged. There is no pelvic fluid. There is no pelvic lymphadenopathy or mass lesion. CT/CT Chest, Abd, Pel w/Contrast IMPRESSION: 1. Surgical anastomosis sutures in the rectosigmoid junction with segment of significant narrowing or stenosis. 2. Persistent mild circumferential thickening of the bladder wall unchanged. 3. No new focal acute inflammatory process. Electronically Signed: Emeka Araujo MD at 15:03 EST ,
[2024-06-09 13:29] LABS: CREATININE FINGERSTICK < 1.0 mg/dL (0.70-1.30); EGFR FINGERSTICK > 60.0000 mL/min (>60)
== END | disposition home or self-care (01) ==
LOC: CT 12:45
PROVIDERS: PCP Family Medicine; Referring Provider Internal Medicine Hematology & Oncology; Visit Provider Internal Medicine Hematology & Oncology
DX: C83.30 Diffuse large B-cell lymphoma, unspecified site (principal)
CPT/HCPCS: 71260; 74177; Q9967